=== PATIENT | male | born 1940 | race Caucasian/White ===

== ENCOUNTER → 2018-02-17 | Outpatient (CLI) | payer MEDICARE, BC ==
[2018-02-17 08:37] LABS: ABSOLUTE BASOPHILS 0.1 thou/uL (0.0-0.2); ABSOLUTE EOSINOPHILS 0.1 thou/uL (0.0-0.7); ABSOLUTE LYMPHOCYTES 3.3 thou/uL (0.8-5.3); ABSOLUTE MONOCYTES 0.9 thou/uL (0.0-1.2); ABSOLUTE NEUTROPHILS 5.8 thou/uL (1.6-8.1); BASOPHILS 0.8 %; EOSINOPHILS 0.9 %; HEMATOCRIT 44.3 % (42.0-52.0); HEMOGLOBIN 14.8 gm/dL (14.0-18.0); LYMPHOCYTES 32.5 %; MCH 30.3 pg (26.0-34.0); MCHC 33.4 g/dL (28.0-37.0); MCV 90.6 fL (80.0-100.0); MONOCYTES 9.2 %; MPV 8.4 fl. (7.2-11.1); NUCLEATED RBCS 0 /100WBC; PLATELET COUNT* 219 thou/uL (150-400); POLYS 56.6 %; RBC 4.89 mil/uL (4.50-6.00); RDW-CV 15.6 % (10.5-14.5); WBC 10.2 thou/uL (4.0-11.0)
[2018-02-17 08:41] LABS: CALCIUM 9.6 mg/dL (8.5-10.1); CREATININE 1.4 mg/dL (0.6-1.3); MAGNESIUM 1.9 mg/dL (1.8-2.4); POTASSIUM 4.4 mmol/L (3.5-5.1)
== END ==
LOC: M.LAB 08:13
DX: I73.9 Peripheral vascular disease, unspecified (principal)

== ENCOUNTER 2019-09-24 17:05 | Inpatient (IN) | payer MEDICARE, BC ==
[~2019-09-24] VITALS: Ht 175.3 cm; Wt 86.2 kg
[2019-09-24 17:00] VITALS: BP 125/61
[2019-09-24] MEDS ORDERED: TOPROL XL25 MG PO (17:42)
[2019-09-24] MEDS ORDERED: BIDIL TABLET1 EACH PO (17:43)
[2019-09-24] MEDS ORDERED: ACCUPRIL5 MG PO (17:43)
[2019-09-24] MEDS ORDERED: SIMVASTATIN80 MG PO (17:44)
[2019-09-24] MEDS ORDERED: FISH OIL 1,0001 EAC9 PO (17:44)
[2019-09-24] MEDS ORDERED: BAYER CHEWABLE81 MG PO (17:45)
[2019-09-24 19:14] LABS: HEMATOCRIT 27.9 % (42.0-52.0); HEMOGLOBIN 9.1 gm/dL (14.0-18.0)
--- NOTE | 2019-09-24 19:46 | NUR ---
PT DIRECT ADMIT. GET SITUATED TO ROOM. TRACING AFIB ON TELE. PT HEART RATE ON 150'S. LABETALOL IV GIVEN. PT AOX4, UP SBA, O2 SAT 90'S RA. PT DENIES PAIN. INSERTED IV ON L FOREARM. FLUIDS RUNNING. ADMISSION ASSESSMENT CHARTED. MEDS RECONCILED. HOURLY ROUNDING, CALL LIGHT WITHIN REACH, WILL CONTINUE TO MONITOR.
[2019-09-24 20:00] VITALS: BP 105/64
--- NOTE | 2019-09-24 20:00 | NUR ---
RECEIVED REPORT AND ASSUMED CARE OF PT, ASSESSMENT COMPLETED. PT STATES HE IS STILL VERY DIZZY. REASSURANCE GIVEN. TELEMETRY ON SHOWING A-FIB WITH RATE 110-130'S. AMINODARONE IV STARTED. WILL CONT TO MONITOR AND ASSIST NEEDED.
[2019-09-24 20:46] LABS: ABSOLUTE LYMPHOCYTES 1.9 thou/uL (0.8-5.3); ABSOLUTE MONOCYTES 0.6 thou/uL (0.0-1.2); ABSOLUTE NEUTROPHILS 6.1 thou/uL (1.6-8.1); BASOPHILS 0.4 %; EOSINOPHILS 0.1 %; HEMATOCRIT 27.5 % (42.0-52.0); HEMOGLOBIN 9.1 gm/dL (14.0-18.0); LYMPHOCYTES 22.2 %; MCH 27.6 pg (26.0-34.0); MCV 83.5 fL (80.0-100.0); MPV 6.9 fl. (7.2-11.1); NUCLEATED RBCS 0 /100WBC; POLYS 70.3 %; RBC 3.29 mil/uL (4.50-6.00); RDW-CV 18.8 % (10.5-14.5); WBC 8.7 thou/uL (4.0-11.0)
[2019-09-24 20:54] LABS: PLATELET COUNT* 369 thou/uL (150-400)
[2019-09-24 21:09] LABS: ALKALINE PHOSPHATASE 372 U/L (46-116); ANION GAP 14 mmol/L (7-16); BUN 30 mg/dL (7-18); CALCIUM 8.8 mg/dL (8.5-10.1); CHLORIDE 103 mmol/L (98-107); CO2 19 mmol/L (21-32); CREATININE 1.3 mg/dL (0.6-1.3); GLUCOSE 134 mg/dL (70-99); NT-PRO BRAIN NAT PEPTIDE 2553 pg/mL (<300); POTASSIUM 3.7 mmol/L (3.5-5.1); SGOT 59 U/L (15-37); SGPT 27 U/L (30-65); SODIUM 136 mmol/L (136-145); TOTAL BILIRUBIN 0.8 mg/dL (<0.1-1.0); TOTAL PROTEIN 6.9 g/dL (6.4-8.2); TROPONIN-I LEVEL <0.06 ng/mL (<0.06)
[2019-09-24] MEDS ORDERED: OMEPRAZOLE 20 M20 M1 PO (22:29)
[2019-09-24 22:48] LABS: URINE BILIRUBIN NEGATIVE (Negative); URINE BLOOD NEGATIVE (Negative); URINE CLARITY CLEAR; URINE COLOR DARK YELLOW; URINE GLUCOSE-RANDOM NEGATIVE (Negative); URINE KETONES NEGATIVE (Negative); URINE LEUKOCYTES-REFLEX NEGATIVE (Negative); URINE NITRITE-REFLEX NEGATIVE (Negative); URINE PROTEIN 1+ (Negative); URINE SPECIFIC GRAVITY >= 1.030 (1.005-1.030)
[2019-09-25] VITALS (21 sets, daily range): BP systolic 78–143; BP diastolic 46–84
--- NOTE | 2019-09-25 04:55 | NUR ---
AWAKE FREQ TONIGHT. C/O BACK PAIN FROM JUST LAYING IN BED. STATES DIZZINESS IS BETTER. ASSISTED TO STAND TO URINATE. URINE DARK, STATES HE HASN'T REALLY ATE OR DRANK LATELY. IVF INFUSING. TELEMETRY CONT TO SHOW A-FIB WITH RATE INTO 100'S WITH AMINO INFUSING. NO CHANGE IN ASSESSMENT. HS GOAL OF SAFETY ACHIEVED. HOURLY ROUNDING OBSERVED.
[2019-09-25 05:07] LABS: HEMOGLOBIN 8.7 gm/dL (14.0-18.0); MCH 27.2 pg (26.0-34.0); MCHC 32.3 g/dL (28.0-37.0); MPV 7.2 fl. (7.2-11.1); RBC 3.21 mil/uL (4.50-6.00); RDW-CV 18.4 % (10.5-14.5); WBC 7.8 thou/uL (4.0-11.0)
[2019-09-25 05:10] LABS: CREATININE 1.1 mg/dL (0.6-1.3); POTASSIUM 3.8 mmol/L (3.5-5.1)
--- NOTE | 2019-09-25 11:55 | NUR ---
MET WITH PT, AND SON TO DISCUSS HOME SITUATION/DC PLANNING. PT LIVES WITH , HAS GOOD FAMILY SUPPORT. PT IS INDEPENDENT AND ACTIVE, USES NO EQUIPMENT. HAD HH IN PAST AFTER CABG. IS DPOA. PT DENIES ANY NEEDS AT THIS TIME. WILL FOLLOW
--- NOTE | 2019-09-25 13:56 | EKG ---
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
--- NOTE | 2019-09-25 14:12 | NUR ---
ASSUMED PT CARE AT 0800, AOX4, UP SBA, O2 SAT 90'S RA. TRACING AFIB IN 110'S. PT ON AMIODARONE AND HEPARIN DRIP. AROUND 1300, PT STARTED TO COMPLAINS SOA, AND STATE "I FEEL LIKE HAVING HEART ATTACK. HAD RAPID RESPONSE. DOCTOR NOTIFIED. PT TRANSFER TO ICU. REPORT GIVEN TO NAEEM GUEVARA.
[2019-09-25 14:18] LABS: BE -11.7 mmol/L (-2 to +3); PCO2 22.9 mmHg (35.0-45.0); pH 7.344 (7.340-7.450)
[2019-09-25 14:19] LABS: PO2 200.4 mmHg (75.0-100.0)
--- NOTE | 2019-09-25 14:46 | NUR ---
PATIENT PLACED ON BIPAP DURING RAPID RESPONSE INITIAL SETTING 16/8 F20 FIO2 100%. ABG DRAWN ON THOSE SETTINGS AND FI02 TITRATED TO 50%, RESP RATE TITRATED TO 14 BPM. SP02 100%
--- NOTE | 2019-09-25 15:52 | EKG ---
[place] [address] ELECTROCARDIOGRAM REPORT Name: ERIC KANG Room: [address] ADM IN M.R.#: [id number] Admission: 09/24/19 Attend Phys: Oliver Serra Discharge: Date of : 36 Report #: [id number] THIS REPORT FOR: //name// [facility] Test Date: 2019-09-25 Test Time: 12:47:00 Pat Name: ERIC KANG Department: Room: [address] Gender: M Transition Mgr Rn: SANTOS : 1940 Requested By: Oliver Vicente Order Number: [id number] Lisa MD: Ramana Christy Measurements Intervals [place] Rate: 142 P: NV: QRS: 109 QRSD: 123 T: -9 QT: 324 QTc: 498 Interpretive Statements Wide-QRS tachycardia atrial fibrillation RBBB and LPFB Baseline wander in lead(s) V3,V5,V6 Compared to ECG 09/24/2019 18:06:53 no change Electronically Signed On 09-25-2019 15:52:19 DANCE HISTORIAN by Ramana Christy [email or web address] <ELECTRONICALLY SIGNED> By: Ramana Christy MD, [facility] 09/25/19 1552 1247 1247 Ramana Christy MD, [facility] /EPI
[2019-09-25 15:58] LABS: HEMATOCRIT 31.2 % (42.0-52.0); HEMOGLOBIN 10.1 gm/dL (14.0-18.0); MCH 27.5 pg (26.0-34.0); MCHC 32.3 g/dL (28.0-37.0); MPV 7.4 fl. (7.2-11.1); RBC 3.67 mil/uL (4.50-6.00); RDW-CV 18.5 % (10.5-14.5); WBC 10.3 thou/uL (4.0-11.0)
[2019-09-25 16:03] LABS: CALCIUM 8.4 mg/dL (8.5-10.1); CREATININE 1.3 mg/dL (0.6-1.3); POTASSIUM 5.4 mmol/L (3.5-5.1)
[2019-09-25 16:11] LABS: APTT 28.5 Seconds (25.0-31.3); INR 1.1; PROTIME 11.6 Seconds (9.20-11.50)
--- NOTE | 2019-09-25 17:10 | 2DMMODE ---
[place] [address] 2 D/M-MODE ECHOCARDIOGRAM Name: ERIC KANG Room: [address] IN [facility]#: [id number] Admission: 09/24/19 Attend Phys: Oliver kim Sa Discharge: Date of : 36 Date of Service: 09/25/19 1710 Report #: [id number] THIS REPORT FOR: //name// APPROVED REPORT Study performed: 09/25/2019 15:17:39 EXAM: Comprehensive 2D, Doppler, and color-flow Echocardiogram Patient Location: In-Patient Room #: 006 Status: routine BSA: 2.05 HR: 120 bpm BP: 93/66 mmHg Rhythm: NSR Other Information Study Quality: Good Indications Atrial Fibrillation 2D Dimensions IVSd: 9.87 (7-11mm) LVOT Diam: 23.00 (18-24mm) LVDd: 50.80 mm PWd: 9.04 (7-11mm) LVDs: 42.45 (25-40mm) Aortic Root: 35.23 mm Volumes Left Atrial Volume (Systole) LA ESV Index: 67.60 mL/m2 Aortic Valve AoV Peak Lazaro.: 1.12 m/s AO Peak Gr.: 5.06 mmHg LVOT Max P.41 mmHg AO Mean Gr.: 3.05 mmHg LVOT Mean P.04 mmHg LVOT Max V: 0.78 m/s AO V2 VTI: 18.04 cm LVOT Mean V: 0.47 m/s LVOT V1 VTI: 11.44 cm TDI Medial E' Lazaro.: 0.16 m/s Lateral E' Lazaro.: 0.14 m/[place] [address] 2 D/M-MODE ECHOCARDIOGRAM Name: ERIC KANG Room: [address] IN [facility].#: [id number] Admission: 09/24/19 Attend Phys: Oliver kim Sa Discharge: Date of : 36 Date of Service: 09/25/19 1710 Report #: [id number] Pulmonary Valve PV Peak Lazaro.: 0.93 m/s PV Peak Gr.: 3.47 mmHg Tricuspid Valve RAP Estimate: 5.00 mmHg TR Peak Gr.: 25.36 mmHg RVSP: 30.00 mmHg PA Pressure: 30.00 mmHg Left Ventricle The left ventricle is normal size. There is global hypokinesis of the left ventricle. There is normal left ventricular wall thickness. Left ventricular systolic function is decreased. LVEF is 25-30%. This study is not technically sufficient to allow evaluation of the LV diastolic function due to atrial fibrillation. Right Ventricle The right ventricle is normal size. The right ventricular systolic function is normal. Atria Left atrium is severely dilated. The right atrium size is normal. Aortic Valve Mild aortic valve sclerosis. No aortic regurgitation is present. There is no aortic valvular stenosis. Mitral Valve The mitral valve is normal in structure. Mild mitral regurgitation. No evidence of mitral valve stenosis. Tricuspid Valve The tricuspid valve is normal in structure. Trace tricuspid regurgitation estimated pa pressure 35 mm Hg Pulmonic Valve Pulmonic valve is not well visualized. Trace pulmonic regurgitation. Great Vessels The aortic root is normal in size. IVC is normal in size and collapses >50% with inspiration. Pericardium There is no [place] [address] 2 D/M-MODE ECHOCARDIOGRAM Name: ERIC KANG Room: [address] IN ..#: [id number] Admission: 09/24/19 Attend Phys: Oliver kim Sa Discharge: Date of : 36 Date of Service: 09/25/191709 Report #: [id number] <Conclusion> LVEF is 25-30%. Left atrium is severely dilated. Mild mitral regurgitation. Mild aortic valve sclerosis. Trace tricuspid regurgitation estimated pa pressure 35 mm Hg <ELECTRONICALLY SIGNED> By: Ramana Christy MD, [facility] 09/25/191709 09 1710 Ramana Christy MD, FACC /INF
--- NOTE | 2019-09-25 20:05 | NUR ---
PT RECEIVED FROM TELE AT 1400, BIPAP SUPPORT, FIO2 50%. ECG SHOWS A FIB, DIGOXIN 0.5 MG AND METOPROLOL 25 MG XL ADMINISTERED PER CARDIOLOGY. VSS. TOLERATED DIET. NS AT 125 MLS/HR.
[2019-09-26] VITALS (17 sets, daily range): BP systolic 110–145; BP diastolic 45–70
[2019-09-26 04:07] LABS: HEMATOCRIT 27.2 % (42.0-52.0); HEMOGLOBIN 8.9 gm/dL (14.0-18.0)
[2019-09-26 04:22] LABS: CREATININE 1.2 mg/dL (0.6-1.3)
[2019-09-26 04:26] LABS: POTASSIUM 3.8 mmol/L (3.5-5.1)
--- NOTE | 2019-09-26 05:24 | NUR ---
ASSUMED CARE AT 1910H,ON NC AT 2LPM AND REMOVED.NO RESPIRATORY DISTRESS AND O2 SAT WITHIN NORMAL.ASSISTED TO COMMODE.DC FLUIDS AND PT DRINKING WELL.CONTINUE MONITORING AND TOWARD GOALS.
[2019-09-26 09:33] LABS: % SATURATION 35 % (20-39); IRON 63 ug/dL (50-175)
--- NOTE | 2019-09-26 14:58 | NUR ---
PT A/O X4,VSS,MUSIC CATALOGUER IN PLACE.PT REPORTS SLIGHT DIZZINESS WITH STANDING AND ELEVATED HR IN THE 110s-120s. CARDIOLOGY NOTIFIED.PT ON ROOM AIR.PROGRESSING TOWARDS GOALS.NO C/O PAIN.PT DOWNGRADED TO TELEMETRY STATUS.PT TO TRANSFER TO TELEMETRY,ROOM 230.PT AND FAMILY INFORMED OF PLAN OF CARE AND COMMUNICATES UNDERSTANDING.REPORT CALLED TO PEGGY.ALL PERSONAL BELONGINGS PACKED AND TAKEN WITH THE PT.
--- NOTE | 2019-09-26 17:00 | NUR ---
RECEIVED REPORT FROM JACINDA GUEVARA FROM ICU. PT ARRIVED TO TELE FLOOR AROUND 1530, ASSUMED CARE. PT A&O X4. VSS. WOUND NURSE PLACED TRACING AFIB. PT ORIENTED TO ROOM, BED AND CALL LIGHT. COMMUNICATES UNDERSTANDING. LUNGS CLEAR. ACTIVE BOWEL SOUNDS. IV'S INTACT. MEDS PER EMAR. FAMILY AT BEDSIDE VISITING. PT URINATING PER URINAL. NO BM. DENIES PAIN OR DISCOMFORT. THIS RN AGREES WITH THE ASSESSMENT AND CHARTING OF JACINDA GUEVARA. PT CURRENTLY RESTING IN BED AWAITING DINNER. CALL LIGHT IS WITHIN REACH. FALL PRECAUTIONS IN PLACE. HOURLY ROUNDING PERFORMED. WCTM FOR DURATION OF SHIFT.
[2019-09-27] VITALS (7 sets, daily range): BP systolic 101–134; BP diastolic 52–62
[2019-09-27 05:22] LABS: HEMOGLOBIN 9.4 gm/dL (14.0-18.0); MCH 27.9 pg (26.0-34.0); MCHC 33.4 g/dL (28.0-37.0); MCV 83.5 fL (80.0-100.0); MPV 7.1 fl. (7.2-11.1); RBC 3.36 mil/uL (4.50-6.00); RDW-CV 18.2 % (10.5-14.5); WBC 7.4 thou/uL (4.0-11.0)
[2019-09-27 05:30] LABS: CALCIUM 8.7 mg/dL (8.5-10.1); CREATININE 1.1 mg/dL (0.6-1.3); MAGNESIUM 1.9 mg/dL (1.8-2.4); POTASSIUM 3.4 mmol/L (3.5-5.1)
--- NOTE | 2019-09-27 19:42 | NUR ---
RECEIVED REPORT FROM CYNTHIA GUEVARA. ASSUMED CARE OF PT AROUND 0730. PT A&O X4. NISQUALLY. REFRIGERATION LEAD IN PLACE TRACING AFIB WITH OCCASIONAL PVC'S. AM ASSESSMENT AND VITALS COMPLETED CHARTED. IV INTACT. MEDS PER EMAR. PT DENIED PAIN OR DISCOMFORT THIS SHIFT, BUT DID COMPLAIN OF DIZZINESS UPON STANDING. ORTHOSTATIC BP'S POSITIVE. INSTRUCED PT TO RISE SLOWLY AND TO ALLOW HIS FEET TO DANGLE OFF THE SIDE OF THE BED BEFORE GETTING ALL THE WAY UP. FALL PRECAUTIONS MAINTAINED. FAMILY VISITED THIS AFTERNOON TO WATCH [email or web address]. CALL LIGHT WITHIN REACH. HOURLY ROUNDING PERFORMED.
[2019-09-28] VITALS: BP 109/64
[2019-09-28 04:00] VITALS: BP 104/51
[2019-09-28 04:53] LABS: ABSOLUTE LYMPHOCYTES 2.2 thou/uL (0.8-5.3); ABSOLUTE MONOCYTES 0.5 thou/uL (0.0-1.2); ABSOLUTE NEUTROPHILS 5.4 thou/uL (1.6-8.1); BASOPHILS 0.4 %; EOSINOPHILS 0.6 %; HEMATOCRIT 30.3 % (42.0-52.0); HEMOGLOBIN 9.8 gm/dL (14.0-18.0); LYMPHOCYTES 26.7 %; MCH 27.4 pg (26.0-34.0); MCHC 32.4 g/dL (28.0-37.0); MCV 84.4 fL (80.0-100.0); MONOCYTES 6.2 %; MPV 7.1 fl. (7.2-11.1); NUCLEATED RBCS 1 /100WBC; PLATELET COUNT* 379 thou/uL (150-400); POLYS 66.1 %; RBC 3.59 mil/uL (4.50-6.00); RDW-CV 18.8 % (10.5-14.5); WBC 8.2 thou/uL (4.0-11.0)
--- NOTE | 2019-09-28 06:50 | NUR ---
ASSUMED PT CARE AT 1930. NURSING ASSESSMENT COMPLETED AT START OF SHIFT. PT C/O PAIN TO RIGHT GROIN, PRN PAIN MEDICATION ADMINISTERED. HEATING PAD PROVIDED FOR PAIN/COMFORT. PSYCHIATRIC CLINICIAN IN PLACE, TRACING SR. HOURLY ROUNDING COMPLETED. FALL PRECAUTIONS IN PLACE. CALL LIGHT WITHIN REACH.
--- NOTE | 2019-09-28 06:50 | NUR ---
ASSUMED PT CARE AT 1915. NURSING ASSESSMENT COMPLETED AT START OF SHIFT. 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 HOURLY ROUNDING COMPLETED. HIGH FALL PRECAUTIONS INPLACE. PT EDUCATED ON IMPORTANCE OF BED ALARM AND HIGH FALL PRECAUTIONS AND RATIONALE. PT FRUSTRATED, STATED HE WOULD NOT COME BACK TO THIS HOSPITAL. CALL LIGHT WITHIN REACH.
[2019-09-28 10:03] VITALS: BP 123/67
[2019-09-28 12:01] VITALS: BP 113/61
[2019-09-28] MEDS ORDERED: ELIQUIS5 MG PO (12:05)
[2019-09-28] MEDS ORDERED: LANOXIN 0.25M0.25 M1 PO (12:07)
[2019-09-28] MEDS ORDERED: PAIN RELIEF650 MG PO (12:15)
[2019-09-28] MEDS ORDERED: SPIRONOLACTONE25 M1 PO (12:16)
[2019-09-28 12:17] VITALS: BP 113/61
--- NOTE | 2019-09-28 12:27 | NUR ---
IV AND TELE DISOCNTINUED. PT WILL BE DISCHARGED TO HOME.
--- NOTE | 2019-09-28 12:36 | CON ---
[address] [address] CONSULTATION Name: ERIC KANG Room: [address] IN M.R.#: [id number] Admission: 09/24/19 Attend Phys: Oliver Serra Discharge: Date of : 36 Report #: [id number] THIS REPORT FOR: //name// CC: Oliver Urbano DO DATE OF SERVICE: 09/25/2019 CARDIOLOGY CONSULTATION HISTORY OF PRESENT ILLNESS: The patient is an 79-year-old white male who I was asked to see in the hospital after he complained of being short of breath. The history is obtained from the patient as well as his who is present. The patient has an extensive past medical history. He had previous coronary stents and eventually underwent 5-vessel bypass surgery at [place] in 2008. He has had coronary stents placed since that time. His last stress test a year ago. He stays fairly active, going to the gym every day. He also has a history of PAD with previous lower extremity stents in both legs. He does have occasional chest pain, but usually occurs after eating. There is no radiation of the pain. Recently, he has been weak and short of breath. He went to see his doctor yesterday and was noted to be anemic with azotemia. He was sent to the Emergency Room and admitted. He denied any palpitations, lightheadedness or syncope. Today, his atrial fibrillation was noted to be increased. I was asked to see him for further evaluation and treatment. PAST MEDICAL HISTORY: Significant for previous carotid endarterectomy. He has a history of hypertension and hyperlipidemia. MEDICATIONS: His medications on admission consist of metoprolol, quinapril, BiDil, simvastatin, aspirin and omeprazole. FAMILY HISTORY: Positive for heart disease. SOCIAL HISTORY: He is . He and his live in [place], quit smoking years ago, rarely drinks alcohol. REVIEW OF SYSTEMS: No history of stroke, asthma, peptic ulcer disease, cancer, psychiatric illness and chronic skin condition. PHYSICAL EXAMINATION: GENERAL: Revealed an elderly male, lying in bed, appeared in no acute distress. VITAL SIGNS: Blood pressure 120/60, pulse is 80, he is afebrile. HEENT: He was anicteric. Conjunctivae are pink. Mucous membranes are moist. NECK: Veins do not appear distended. No carotid bruits. CHEST: [place] [address] CONSULTATION Name: ERIC KANG Room: [address]#: [id number] Admission: 09/24/19 Attend Phys: Oliver Serra Discharge: Date of : 36 Report #: [id number] CARDIOVASCULAR: Irregular rhythm. ABDOMEN: Soft. EXTREMITIES: Had no edema. Dorsalis pedis pulse cannot be palpated. SKIN: Cool and dry. NEUROLOGIC: Nonfocal. DIAGNOSTIC DATA: His ECG on admission yesterday showed atrial fibrillation with increased ventricular response rate and a right bundle-branch block. His workup so far, he had portable chest x-ray that showed cardiomegaly, mild vascular congestion. LABORATORY DATA: Sodium 136, BUN 26 and creatinine 1.1. Troponin 0.06. BNP 2,553. His white blood cell count 7.8, hemoglobin 10.1. IMPRESSION AND RECOMMENDATIONS: 1. Atrial fibrillation. Rate controlled with beta-monik. I would consider anticoagulation. 2. Previous coronary artery bypass surgery. No recent evidence of myocardial infarction. 3. Hypertension. The patient is on a beta monik and AMRIA inhibitor. 4. Hyperlipidemia. The patient is on a statin drug. 5. Anemia. No evidence of bleeding. 6. Previous tobacco abuse. 7. Chronic obstructive pulmonary disease. <ELECTRONICALLY SIGNED> By: Ramana Christy MD, FACC 09/28/19 1236 1424 [id number] Christy MD, FACC /nt
--- NOTE | 2019-10-01 14:27 | CON ---
[address] [address] CONSULTATION Name: ERIC KANG Room: [address] IN .R.#: [id number] Admission: 09/24/19 Attend Phys: Oliver Serra Discharge: 09/28/19 Date of : 36 Report #: [id number] THIS REPORT FOR: //name// CC: Oliver Livingston DATE OF SERVICE: 09/26/2019 REQUESTING PHYSICIAN: Oliver Benoit MD REASON FOR CONSULTATION: Anemia. HISTORY OF PRESENT ILLNESS: This is an 79-year-old male with significant history of coronary artery disease and peripheral vascular disease, who has had CABG x [address]. The patient was not feeling good and was orthostatic; therefore, was sent from her primary care physician's office to the hospital. Initially was hospitalized on the cardiac floor and then was transferred to ICU as he had tachycardia and shortness of air. The patient has been dropping his hemoglobin and currently his hemoglobin is just above 8. He denies any hematochezia or melena. He reports that he had a couple of colonoscopies performed by Dr. Juarez which were incomplete due to tortuosity of his colon. He takes PPI for gastroesophageal reflux disease. He currently denies nausea, vomiting, dyspepsia, dysphagia and abdominal pain. PAST MEDICAL HISTORY: Significant for history of coronary artery disease, status post CABG x 5; multiple coronary artery stent placements; hypertension; peripheral vascular disease; anemia; AFib; and GERD. ALLERGIES: SIGNIFICANT TO PENICILLIN. MEDICATIONS: Please refer to MAR. SOCIAL HISTORY: The patient has remote history of tobaccoism, but has quit 16 years ago. He may occasionally have alcoholic beverage. FAMILY HISTORY: Noncontributory. PHYSICAL EXAMINATION: VITAL SIGNS: Reveals blood pressure of 123/54, respirations 23, pulse 99, temperature 97.4. LUNGS: Clear. CARDIOVASCULAR: Regular. ABDOMEN: Soft, nontender, nondistended. Bowel sounds are positive. NEUROLOGIC: The patient is alert [place] [address] [address] CONSULTATION Name: ERIC KANG Room: [address]#: [id number] Admission: 09/24/19 Attend Phys: Oliver Serra Discharge: 09/28/19 Date of : 36 Report #: [id number] LABORATORY DATA: Reveal sodium of 139, potassium 3.8, BUN is 24, creatinine 1.2, glucose is 101. AST is 59, ALT is 27, alk phos 372, calcium is 9, total bilirubin is 0.8. Iron saturation is 35 with serum iron of 63. B12 is 423. INR is 1.1. Hemoglobin is 8.9 with WBC of 10.3 and platelets of 398. IMAGING: CT angiogram was performed and reviewed. ASSESSMENT AND PLAN: The patient with significant history of coronary artery disease and peripheral vascular disease, who has not been feeling good since receiving the flu vaccine. He currently is anemic with hemoglobin of 8.9, but denies any evidence of gilberto GI bleed. He claims that he has had endoscopies by Dr. Juarez, so we will request those endoscopic evaluation reports. If the patient continues to drop his hemoglobin, we will consider performing the EGD colon before he leaves the hospital. Meanwhile, he has iron deficiency anemia and should be receiving iron replacement therapy. <ELECTRONICALLY SIGNED> By: Angelo Cristobal MD 10/01/19 1427 1421 [id number] Cristobal MD /nt
== END 2019-09-28 12:52 | disposition home or self-care (01) | DRG 291 ==
LOC: M.2W 17:05 → M.ICU 09-25 13:40 → M.2W 09-26 15:31
PROVIDERS: Internal Medicine; Internal Medicine Cardiovascular Disease; ADMIT Family Medicine
PROC: 5A09357 Assistance with Respiratory Ventilation, Less than 24 Consecutive Hours, Continuous Positive Airway Pressure (ICD-10-PCS; principal; 2019-09-25)
DX: I13.0 Hypertensive heart and chronic kidney disease with heart failure and stage 1 through stage 4 chronic kidney disease, or unspecified chronic kidney disease (principal); I50.43 Acute on chronic combined systolic (congestive) and diastolic (congestive) heart failure; J80 Acute respiratory distress syndrome; I48.20 Chronic atrial fibrillation, unspecified; E86.0 Dehydration; I42.9 Cardiomyopathy, unspecified; T50.905A Adverse effect of unspecified drugs, medicaments and biological substances, initial encounter; Y92.89 Other specified places as the place of occurrence of the external cause; I95.1 Orthostatic hypotension; N18.2 Chronic kidney disease, stage 2 (mild); E78.5 Hyperlipidemia, unspecified; Z95.5 Presence of coronary angioplasty implant and graft; I73.9 Peripheral vascular disease, unspecified; D64.9 Anemia, unspecified; J44.9 Chronic obstructive pulmonary disease, unspecified; I25.10 Atherosclerotic heart disease of native coronary artery without angina pectoris; Z79.82 Long term (current) use of aspirin; Z82.49 Family history of ischemic heart disease and other diseases of the circulatory system; Z95.1 Presence of aortocoronary bypass graft; Z88.0 Allergy status to penicillin; Z83.42 Family history of familial hypercholesterolemia; Z87.891 Personal history of nicotine dependence; Z79.899 Other long term (current) drug therapy

== ENCOUNTER → 2019-09-24 | Outpatient (CLI) | payer MEDICARE, BC ==
[~2019-09-24] MED LIST: ACCUPRIL5 MG PO; BAYER CHEWABLE81 MG PO; BIDIL TABLET1 EACH PO; ELIQUIS5 MG PO; FISH OIL 1,0001 EAC9 PO; LANOXIN 0.25M0.25 M1 PO; OMEPRAZOLE 20 M20 M1 PO; PAIN RELIEF650 MG PO; SIMVASTATIN80 MG PO; SPIRONOLACTONE25 M1 PO; TOPROL XL25 MG PO
[2019-09-24 13:00] LABS: HEMATOCRIT 30.8 % (42.0-52.0); HEMOGLOBIN 10.1 gm/dL (14.0-18.0); MCH 27.5 pg (26.0-34.0); MCHC 32.7 g/dL (28.0-37.0); MCV 84.2 fL (80.0-100.0); MPV 6.7 fl. (7.2-11.1); NUCLEATED RBCS 0 /100WBC; PLATELET COUNT* 450 thou/uL (150-400); RBC 3.66 mil/uL (4.50-6.00); RDW-CV 18.6 % (10.5-14.5); WBC 10.2 thou/uL (4.0-11.0)
[2019-09-24 13:17] LABS: ABSOLUTE LYMPHOCYTES 2.3 thou/uL (0.8-5.3); ABSOLUTE MONOCYTES 0.7 thou/uL (0.0-1.2); ABSOLUTE NEUTROPHILS 7.1 thou/uL (1.6-8.1); ANISOCYTOSIS 1+; MYELOCYTES 1 %; PLATELET ESTIMATE INCREASED; POIKILOCYTOSIS 1+
[2019-09-24 13:18] LABS: POLYCHROMASIA 1+
[2019-09-24 13:21] LABS: ALBUMIN 2.2 g/dL (3.4-5.0); CALCIUM 9.1 mg/dL (8.5-10.1); CREATININE 1.5 mg/dL (0.6-1.3); POTASSIUM 3.9 mmol/L (3.5-5.1); TOTAL PROTEIN 7.4 g/dL (6.4-8.2)
[2019-09-24 13:58] LABS: % SATURATION 16 % (20-39); IRON 35 ug/dL (50-175)
== END ==
LOC: M.LAB 12:19
PROVIDERS: Family Medicine
DX: D64.9 Anemia, unspecified (principal); I10 Essential (primary) hypertension